=== PATIENT | female | born 1965 | race African-American/Black ===

== ENCOUNTER 2018-05-05 18:37 | Inpatient (IN) | payer MEDICAID ==
[~2018-05-05] VITALS: Ht 165.1 cm; Wt 102.1 kg
[2018-05-05] MEDS ORDERED: ACETAMINOPHEN 325MG TABLET PO STA (19:11)
[2018-05-05] MEDS ORDERED: ONDANSETRON HCL 4MG/2ML INJ IV STA (19:11)
[2018-05-05] MEDS ORDERED: MORPHINE SULFATE 4 MG/ML CPJ (NOT FOR IM USE) IV STA (19:11)
[2018-05-05] MEDS ORDERED: SODIUM CHLORIDE 0.9% 1000ML BAG (SEPSIS BOLUS) IV ONE (19:15)
[2018-05-05 20:32] LABS: CLARITY URINE CLEAR (CLEAR); COLOR URINE YELLOW (YELLOW); KETONES URINE NEGATIVE (NEGATIVE); LEUKOCYTE ESTERASE URINE NEGATIVE (NEGATIVE); NITRITE URINE NEGATIVE (NEGATIVE); OCCULT BLOOD URINE NEGATIVE (NEGATIVE); PROTEIN URINE 1+ (NEGATIVE); SPECIFIC GRAVITY URINE 1.009 (1.005-1.030)
[2018-05-05 20:45] LABS: METHADONE URINE SCREEN NEGATIVE (NEGATIVE)
[2018-05-05 20:46] LABS: *AMPHETAMINES SCREEN URINE NEGATIVE (NEGATIVE); *BARBITURATES SCREEN URINE NEGATIVE (NEGATIVE); *BENZODIAZEPINES SCREEN URINE NEGATIVE (NEGATIVE); *COCAINE SCREEN URINE NEGATIVE (NEGATIVE); CANNABINOID URINE SCREEN NEGATIVE (NEGATIVE); OPIATES URINE SCREEN NEGATIVE (NEGATIVE); PHENCYCLIDINE URINE SCREEN NEGATIVE (NEGATIVE)
[2018-05-05 20:55] LABS: BASOPHILS % 0.5 % (0.0-2.0); EOSINOPHILS % 0.8 % (0.0-5.0); HEMATOCRIT. 40.5 % (36.0-48.0); HEMOGLOBIN. 13.8 g/dL (12.0-16.0); LYMPHOCYTES % 29.2 % (20.0-50.0); MEAN CORPUSCULAR HEMOGLOBIN 31.8 pg (28.0-32.0); MEAN CORPUSCULAR VOLUME 93.2 fL (81.0-99.0); MEAN PLATELET VOLUME 6.1 fl (7.4-10.4); MONOCYTES % 11.6 % (2.0-8.0); NEUTROPHILS % 57.9 % (40.0-76.0); PLATELET 373 x1000/uL (130-400); RED BLOOD CELL COUNT 4.35 mill/uL (4.2-5.4); RED CELL DISTRIBUTION WIDTH 12.8 % (11.6-14.6)
[2018-05-05 20:58] LABS: CHLORIDE 94 mEq/L (98-107)
[2018-05-05 21:00] LABS: INR 1.1; PROTHROMBIN TIME 10.6 sec (9.1-11.1)
[2018-05-05 21:02] LABS: ETHANOL BLOOD < 10 mg/dL
[2018-05-05 21:07] LABS: HCG SCREEN NEGATIVE
[2018-05-05] MEDS ORDERED: POTASSIUM CHLORIDE 20MEQ TABLET SR PO NR (21:15)
[2018-05-05] MEDS ORDERED: LIDOCAINE HCL 1% 20ML VIAL (Pyxis) INJ ONE (23:07)
[2018-05-05] MEDS ORDERED: CEFTRIAXONE 2 G PREMIX 50 ML IV ONE (23:15)
[2018-05-05] MEDS ORDERED: VANCOMYCIN 1 G PREMIX 200 ML IV ONE (23:15)
[2018-05-06 00:10] LABS: GLUCOSE CSF 52 mg/dL (41-75)
[2018-05-06 04:03] VITALS: BP 156/96
[2018-05-06] MEDS ORDERED: HYDROMORPHONE HCL/PF 2MG/ML CPJ IM PRN (06:00)
[2018-05-06] MEDS ORDERED: CEFTRIAXONE 1 G PREMIX 50 ML IV SCH (06:00)
[2018-05-06 08:00] VITALS: BP 152/78
[2018-05-06] MEDS: CEFTRIAXONE 2 G in DEXTROSE 5% WATER 50 ML IV SCH ×2 (09:00→20:17)
[2018-05-06] MEDS: ONDANSETRON HCL 4MG/2ML INJ IV PRN (09:01)
[2018-05-06] MEDS ORDERED: HYDROMORPHONE HCL/PF 2MG/ML CPJ IV PRN (10:00)
[2018-05-06] MEDS: VANCOMYCIN 1 G PREMIX 200 ML IV SCH ×2 (11:53→23:28)
[2018-05-06 12:00] VITALS: BP 155/74
[2018-05-06] MEDS: HYDROCODONE/ACETAMINOPHEN 5/325MG TABLET PO PRN ×2 (12:57→20:28)
[2018-05-06] MEDS ORDERED: CLONIDINE 0.1MG TABLET PO PRN (15:45)
[2018-05-06 16:00] VITALS: BP 137/64
[2018-05-06] MEDS: ACETAMINOPHEN 325MG TABLET PO PRN (18:17)
[2018-05-06 19:51] VITALS: BP 143/74
[2018-05-06] MEDS: AMLODIPINE 5MG TABLET PO SCH (20:17)
[2018-05-07] VITALS: BP 137/76
[2018-05-07] MEDS: HYDROCODONE/ACETAMINOPHEN 5/325MG TABLET PO PRN ×4 (03:27→20:05)
[2018-05-07 04:00] VITALS: BP 162/72
[2018-05-07 06:40] LABS: EOSINOPHILS % 2.3 % (0.0-5.0); HEMATOCRIT. 38.9 % (36.0-48.0); HEMOGLOBIN. 13.8 g/dL (12.0-16.0); LYMPHOCYTES % 36.6 % (20.0-50.0); MEAN CORPUSCULAR HEMOGLOBIN 32.6 pg (28.0-32.0); MEAN CORPUSCULAR VOLUME 91.9 fL (81.0-99.0); MEAN PLATELET VOLUME 6.1 fl (7.4-10.4); MONOCYTES % 8.2 % (2.0-8.0); NEUTROPHILS % 51.9 % (40.0-76.0); PLATELET 372 x1000/uL (130-400); RED BLOOD CELL COUNT 4.24 mill/uL (4.2-5.4); RED CELL DISTRIBUTION WIDTH 12.6 % (11.6-14.6)
[2018-05-07 06:51] LABS: CHLORIDE 99 mEq/L (98-107)
[2018-05-07 08:00] VITALS: BP 160/70
[2018-05-07] MEDS: AMLODIPINE 5MG TABLET PO SCH ×2 (08:20→21:17)
[2018-05-07] MEDS: ONDANSETRON HCL 4MG/2ML INJ IV PRN ×3 (08:21→17:54)
[2018-05-07] MEDS: CEFTRIAXONE 2 G in DEXTROSE 5% WATER 50 ML IV SCH ×2 (08:21→21:16)
[2018-05-07] MEDS ORDERED: POTASSIUM CHLORIDE 20MEQ TABLET SR PO NR (11:30)
[2018-05-07 12:00] VITALS: BP 178/72
[2018-05-07] MEDS: VANCOMYCIN 1 G PREMIX 200 ML IV SCH (13:08)
[2018-05-07] MEDS: ACETAMINOPHEN 325MG TABLET PO PRN (17:54)
[2018-05-07 20:00] VITALS: BP 143/65
[2018-05-07] MEDS: VANCOMYCIN 1500MG in DEXTROSE 5% WATER 250ML IV SCH (22:27)
[2018-05-08] VITALS: BP 127/67
[2018-05-08] MEDS: HYDROCODONE/ACETAMINOPHEN 5/325MG TABLET PO PRN ×4 (00:16→12:23)
[2018-05-08] MEDS: ONDANSETRON HCL 4MG/2ML INJ IV PRN ×2 (00:42→08:26)
[2018-05-08 04:00] VITALS: BP 133/71
[2018-05-08 05:52] LABS: BASOPHILS % 0.8 % (0.0-2.0); EOSINOPHILS % 3.4 % (0.0-5.0); HEMATOCRIT. 39.3 % (36.0-48.0); HEMOGLOBIN. 13.5 g/dL (12.0-16.0); LYMPHOCYTES % 38.7 % (20.0-50.0); MEAN CORPUSCULAR VOLUME 93.3 fL (81.0-99.0); MEAN PLATELET VOLUME 6.2 fl (7.4-10.4); MONOCYTES % 10.9 % (2.0-8.0); NEUTROPHILS % 46.2 % (40.0-76.0); PLATELET 328 x1000/uL (130-400); RED BLOOD CELL COUNT 4.21 mill/uL (4.2-5.4); RED CELL DISTRIBUTION WIDTH 12.7 % (11.6-14.6)
[2018-05-08 06:32] LABS: CHLORIDE 97 mEq/L (98-107)
[2018-05-08] MEDS: CEFTRIAXONE 2 G in DEXTROSE 5% WATER 50 ML IV SCH (07:30)
[2018-05-08] MEDS: AMLODIPINE 5MG TABLET PO SCH (08:23)
[2018-05-08] MEDS: VANCOMYCIN 1500MG in DEXTROSE 5% WATER 250ML IV SCH (09:30)
[2018-05-08 12:00] VITALS: BP 128/70
[2018-05-08 14:13] LABS: HIV SCREEN 4G Non Reactive (Non Reactive)
[2018-05-08 16:00] VITALS: BP 127/86
== END 2018-05-08 19:00 | disposition home or self-care (01) | DRG 51 ==
LOC: ER 19:46 → 7WST 23:31 → EDBEDREQ 23:38 → EDBEDREQSVC 23:38 → EDBEDREQTM 23:38 → ENRESERV 05-06 02:55
PROVIDERS: ADMIT Internal Medicine; ATTEND Internal Medicine
PROC: 009U3ZX Drainage of Spinal Canal, Percutaneous Approach, Diagnostic (ICD-10-PCS; principal; 2018-05-05)
DX: A87.9 Viral meningitis, unspecified (principal); E87.8 Other disorders of electrolyte and fluid balance, not elsewhere classified; E44.1 Mild protein-calorie malnutrition; E66.9 Obesity, unspecified; E87.6 Hypokalemia; M19.90 Unspecified osteoarthritis, unspecified site; E87.1 Hypo-osmolality and hyponatremia; F17.200 Nicotine dependence, unspecified, uncomplicated; G40.909 Epilepsy, unspecified, not intractable, without status epilepticus; I10 Essential (primary) hypertension; M81.0 Age-related osteoporosis without current pathological fracture; Z68.37 Body mass index [BMI] 37.0-37.9, adult; Z88.0 Allergy status to penicillin; Z88.2 Allergy status to sulfonamides; Z90.49 Acquired absence of other specified parts of digestive tract; Z71.6 Tobacco abuse counseling
CPT/HCPCS: 36415; 71045; 80048; 80202; 80305; 82945; 83605; 84145; 84157; 84484; 84703; 86703; 87070; 87389; 87804; 93005; 96365; 96375; 99291; G0482; J0696; J1170; J2270; J2405; J3370; J3490; J7030; J7050; J7060

== ENCOUNTER 2019-03-06 11:24 | Inpatient (IN) | payer MEDICAID, MEDICARE ==
[~2019-03-06] VITALS: Ht 160 cm; Wt 104.3 kg
[2019-03-06] MEDS ORDERED: SODIUM CHLORIDE 0.9% 1000ML BAG (SEPSIS BOLUS) IV ONE (11:45)
[2019-03-06] MEDS ORDERED: ACETAMINOPHEN 500MG TABLET PO ONE (12:00)
[2019-03-06 12:21] LABS: CHLORIDE 96 mEq/L (98-107); PROTHROMBIN TIME 10.7 sec (9.6-11.0)
[2019-03-06 12:24] LABS: HEMATOCRIT. 38.5 % (36.0-48.0); HEMOGLOBIN. 13.5 g/dL (12.0-16.0); MEAN CORPUSCULAR HEMOGLOBIN 30.9 pg (28.0-32.0); MEAN CORPUSCULAR VOLUME 88.2 fL (81.0-99.0); MEAN PLATELET VOLUME 6.9 fl (7.4-10.4); PLATELET 254 x1000/uL (130-400); RED BLOOD CELL COUNT 4.36 mill/uL (4.2-5.4); RED CELL DISTRIBUTION WIDTH 13.4 % (11.6-14.6)
[2019-03-06] MEDS ORDERED: LEVOFLOXACIN 500MG PREMIX 100 ML IV ONE (12:45)
[2019-03-06 13:19] LABS: PLATELET ESTIMATE NORMAL
[2019-03-06] MEDS ORDERED: MORPHINE SULFATE 4 MG/ML CPJ (NOT FOR IM USE) IV STA (13:21)
[2019-03-06] MEDS ORDERED: ONDANSETRON HCL 4MG/2ML INJ IV STA (13:21)
[2019-03-06 14:49] LABS: CLARITY URINE CLEAR (CLEAR); COLOR URINE DARK YELLOW (YELLOW); KETONES URINE NEGATIVE (NEGATIVE); LEUKOCYTE ESTERASE URINE TRACE (NEGATIVE); NITRITE URINE NEGATIVE (NEGATIVE); OCCULT BLOOD URINE NEGATIVE (NEGATIVE); PH URINE 6.5 (4.5-8.0); PROTEIN URINE 1+ (NEGATIVE); SPECIFIC GRAVITY URINE 1.016 (1.005-1.030)
[2019-03-06] MEDS ORDERED: HYDR25TA MT (17:52)
[2019-03-06] MEDS ORDERED: PHEN100C4 PO (17:52)
[2019-03-06] MEDS ORDERED: LISI30TA36 MT (17:52)
[2019-03-06] MEDS ORDERED: FLUO10CA25 MT (17:53)
[2019-03-06] MEDS: INSULIN LISPRO 100 UNITS/ML SUBCUT SCH ×2 (18:10→21:00)
[2019-03-06] MEDS ORDERED: CLONIDINE 0.1MG TABLET PO PRN (18:15)
[2019-03-06] MEDS ORDERED: MAGNESIUM/ALUMINUM HYDROXIDE/SIMETHICONE 30ML UDC PO PRN (18:15)
[2019-03-06] MEDS ORDERED: GUAIFENESIN 200MG/10ML SUGAR FREE UDC PO PRN (18:15)
[2019-03-06] MEDS ORDERED: NA PHOS,M-B/NA PHOS,DI-BA ENEMA 118ML PR PRN (18:15)
[2019-03-06] MEDS ORDERED: LORAZEPAM 2MG/ML CPJ IV PRN (18:15)
[2019-03-06] MEDS ORDERED: POTASSIUM CHLORIDE 20MEQ TABLET SR PO NR (18:15)
[2019-03-06] MEDS ORDERED: IPRATROPIUM/ALBUTEROL 0.5-3(2.5)MG/3ML NEB HHN PRN (18:15)
[2019-03-06] MEDS ORDERED: DIPHENHYDRAMINE 50MG/ML VIAL IV PRN (18:15)
[2019-03-06] MEDS ORDERED: DOCUSATE SODIUM 100MG CAPSULE PO PRN (18:15)
[2019-03-06] MEDS ORDERED: HYDRALAZINE 20MG/ML VIAL IV PRN (18:15)
[2019-03-06] MEDS ORDERED: MORPHINE SULFATE 2 MG/ML CPJ (NOT FOR IM USE) IV PRN (18:15)
[2019-03-06] MEDS ORDERED: ENOXAPARIN 40MG/0.4ML SYR SUBCUT SCH (18:15)
[2019-03-06] MEDS ORDERED: DEXTROSE 50% WATER 50ML SYRINGE IV PRN (18:15)
[2019-03-06] MEDS ORDERED: HYDROCODONE/ACETAMINOPHEN 10/325MG TABLET PO PRN (18:15)
[2019-03-06] MEDS: ONDANSETRON HCL 4MG/2ML INJ IV PRN (19:03)
[2019-03-06 20:00] VITALS: BP 110/58
[2019-03-06] MEDS: SODIUM CHLORIDE 0.45% 1,000 ML IV SCH (21:33)
[2019-03-06] MEDS: PHENYTOIN SODIUM EXTENDED 100MG CAPSULE PO SCH (21:33)
[2019-03-06] MEDS: SODIUM CHLORIDE 0.9% INJ 3ML FLUSH IVF SCH (21:35)
[2019-03-06] MEDS: BLOOD SUGAR DIAGNOSTIC STRIP TEST SCH (21:35)
[2019-03-06] MEDS: ENOXAPARIN 30MG/0.3ML SYR SUBCUT SCH (21:36)
[2019-03-06 23:46] LABS: CREATINE KINASE 69 IU/L (26-192)
[2019-03-06 23:48] LABS: CREATINE KINASE MB FRACTION < 1.0 ng/mL (0.5-3.6)
[2019-03-07] VITALS: BP_SYST 10; BP_SYST 104; BP_DIAS 81
[2019-03-07] MEDS: ACETAMINOPHEN 325MG TABLET PO PRN ×2 (00:52→16:27)
[2019-03-07 04:00] VITALS: BP 122/74
[2019-03-07] MEDS: SODIUM CHLORIDE 0.9% INJ 3ML FLUSH IVF SCH ×3 (05:01→21:53)
[2019-03-07] MEDS: BLOOD SUGAR DIAGNOSTIC STRIP TEST SCH ×4 (07:10→21:53)
[2019-03-07] MEDS: SODIUM CHLORIDE 0.45% 1,000 ML IV SCH ×2 (07:22→21:53)
[2019-03-07 07:43] LABS: HEMOGLOBIN. 11.9 g/dL (12.0-16.0); MEAN CORPUSCULAR HEMOGLOBIN 31.1 pg (28.0-32.0); MEAN CORPUSCULAR VOLUME 88.6 fL (81.0-99.0); MEAN PLATELET VOLUME 6.4 fl (7.4-10.4); PLATELET 224 x1000/uL (130-400); RED BLOOD CELL COUNT 3.83 mill/uL (4.2-5.4); RED CELL DISTRIBUTION WIDTH 13.3 % (11.6-14.6)
[2019-03-07 08:00] VITALS: BP 98/64
[2019-03-07 08:00] LABS: BASOPHILS % 0.7 % (0.0-2.0); EOSINOPHILS % 0.5 % (0.0-5.0); LYMPHOCYTES % 56.5 % (20.0-50.0); MONOCYTES % 11.9 % (2.0-8.0); NEUTROPHILS % 30.4 % (40.0-76.0)
[2019-03-07 08:06] LABS: CHLORIDE 102 mEq/L (98-107)
[2019-03-07] MEDS: INSULIN LISPRO 100 UNITS/ML SUBCUT SCH ×4 (08:10→21:00)
[2019-03-07 08:32] LABS: CREATINE KINASE 64 IU/L (26-192); LDL CHOLESTEROL 64 mg/dL (5-100)
[2019-03-07 08:33] LABS: CREATINE KINASE MB FRACTION < 1.0 ng/mL (0.5-3.6); HDL CHOLESTEROL 16 mg/dL (40-59)
[2019-03-07] MEDS: FLUOXETINE HCL 10 MG CAPSULE PO SCH (09:35)
[2019-03-07] MEDS: ENOXAPARIN 30MG/0.3ML SYR SUBCUT SCH ×2 (09:35→21:53)
[2019-03-07] MEDS ORDERED: POTASSIUM CHLORIDE 20MEQ TABLET SR PO NR (09:45)
[2019-03-07 12:00] VITALS: BP 104/63
[2019-03-07] MEDS ORDERED: LEVOFLOXACIN 500MG PREMIX 100 ML IV SCH (12:00)
[2019-03-07 16:00] VITALS: BP 117/72
[2019-03-07] MEDS: ONDANSETRON HCL 4MG/2ML INJ IV PRN (16:27)
[2019-03-07 20:00] VITALS: BP 106/68
[2019-03-07] MEDS: PHENYTOIN SODIUM EXTENDED 100MG CAPSULE PO SCH (21:53)
[2019-03-08] VITALS: BP_SYST 106; BP_SYST 110; BP_DIAS 44; BP_DIAS 55
[2019-03-08] MEDS: ACETAMINOPHEN 325MG TABLET PO PRN (03:00)
[2019-03-08] MEDS: ONDANSETRON HCL 4MG/2ML INJ IV PRN (03:00)
[2019-03-08 04:00] VITALS: BP 112/75
[2019-03-08] MEDS: SODIUM CHLORIDE 0.9% INJ 3ML FLUSH IVF SCH (05:07)
[2019-03-08] MEDS: BLOOD SUGAR DIAGNOSTIC STRIP TEST SCH (06:59)
[2019-03-08 07:25] LABS: CHLORIDE 100 mEq/L (98-107)
[2019-03-08] MEDS: INSULIN LISPRO 100 UNITS/ML SUBCUT SCH (07:50)
[2019-03-08 08:00] VITALS: BP 127/88
[2019-03-08] MEDS ORDERED: POTASSIUM CHLORIDE 20MEQ TABLET SR PO SCH (08:15)
[2019-03-08] MEDS: ENOXAPARIN 30MG/0.3ML SYR SUBCUT SCH (08:53)
[2019-03-08] MEDS: FLUOXETINE HCL 10 MG CAPSULE PO SCH (08:53)
[2019-03-08 11:27] VITALS: BP 127/88
== END 2019-03-08 12:40 | disposition home or self-care (01) | DRG 139 ==
LOC: ER 11:24 → EDBEDREQ 11:48 → CANBEDREQ 13:18 → 7WST 14:37 → EDBEDREQTM 15:01 → EDBEDREQ 15:01 → ENRESERV 16:07
PROVIDERS: ADMIT Internal Medicine; ATTEND Internal Medicine
DX: J18.9 Pneumonia, unspecified organism (principal); E87.1 Hypo-osmolality and hyponatremia; E11.9 Type 2 diabetes mellitus without complications; E87.6 Hypokalemia; F17.210 Nicotine dependence, cigarettes, uncomplicated; G40.909 Epilepsy, unspecified, not intractable, without status epilepticus; I10 Essential (primary) hypertension; J31.0 Chronic rhinitis; M19.90 Unspecified osteoarthritis, unspecified site; R74.0 Nonspecific elevation of levels of transaminase and lactic acid dehydrogenase [LDH]; Z79.899 Other long term (current) drug therapy; Z90.49 Acquired absence of other specified parts of digestive tract; Z79.4 Long term (current) use of insulin
CPT/HCPCS: 36415; 71045; 80048; 80061; 81003; 82550; 82553; 82962; 83605; 84145; 84439; 84443; 84484; 87804; 93005; 96374; 99285; 99406; J1650; J1956; J2405; J7030